=== PATIENT | female | born 1955 | race Caucasian/White ===

== ENCOUNTER 2021-12-17 21:39 | Emergency (ER) | payer OTHER, BC ==
[2021-12-17 21:45] VITALS: BMI 23.9
[2021-12-17 22:24] VITALS: BP 170/82; PULSE 70; RESP 15; TEMP 98.2
[2021-12-17 22:59] LABS: BASO % 0.9 % (0-2.0); EOS % 2.9 % (0-4.5); HEMATOCRIT 40.1 % (32.4-45.2); HEMOGLOBIN 13.5 GM/dL (10.7-15.3); LYMPH % 44.2 % (8-40); MCH 28.8 pg (25.7-33.7); MCHC 33.7 g/dl (32.0-36.0); MEAN CELL VOLUME 85.5 fl (80-96); MEAN PLT VOLUME 9.9 fl (7.5-11.1); MONO % 7.5 % (3.8-10.2); NEUT % 44.5 % (42.8-82.8); PLATELET COUNT 148 10^3/uL (134-434); RBC 4.69 M/mm3 (3.60-5.2); RDW 12.9 % (11.6-15.6); WHITE BLOOD COUNT 5.1 K/mm3 (4.0-10.0)
[2021-12-17 23:18] LABS: CHLORIDE 106 mmol/L (98-107); SODIUM 140 mmol/L (136-145)
[2021-12-17 23:20] LABS: ALBUMIN 4.6 g/dl (3.4-5.0); ANION GAP 7 MMOL/L (8-16); BLOOD UREA NITROGEN 13.4 mg/dL (7-18); CALCIUM 8.8 mg/dL (8.5-10.1); CO2 28 mmol/L (21-32); GLUCOSE,RANDOM 123 mg/dL (74-106)
[2021-12-17 23:23] LABS: SGPT/ALT 39 U/L (13-61)
[2021-12-17 23:24] LABS: BILIRUBIN,TOTAL 0.6 mg/dL (0.2-1); CREATININE 0.9 mg/dL (0.55-1.3); SGOT/AST 23 U/L (15-37)
[2021-12-17 23:26] LABS: ALK PHOS 98 U/L (45-117)
[2021-12-17 23:27] LABS: N-TERMINAL BNP 271.3 pg/ml (5-125)
[2021-12-17 23:45] LABS: INR 1.09 (0.83-1.09); PROTHROMBIN TIME (PATIENT) 12.6 SEC (9.7-13.0)
[2021-12-17 23:47] LABS: ACTIVATED PTT 30.4 SECONDS (25.2-36.5)
== END 2021-12-18 00:10 | disposition home or self-care (01) ==
LOC: JER 21:39
DX: R07.9 Chest pain, unspecified (principal)
CPT/HCPCS: 36415; 71046-TC-FY; 80053; 83880; 84484; 85025; 85379; 85610; 85730; 86850; 86900; 86901; 93005; 93010; 99284-25; C9803-CS; U0003; U0005

== ENCOUNTER 2022-08-08 08:44 | Day surgery (SDC) | payer OTHER, BC ==
[2022-08-05 15:58] VITALS: BMI 22.9
[2022-08-08 13:46] VITALS: RESP 20; TEMP 97.2
[2022-08-08 14:17] VITALS: BP 110/67; PULSE 90
== END 2022-08-08 14:05 | disposition home or self-care (01) ==
LOC: FASU-ENDO 08:44
PROVIDERS: ATTEND Internal Medicine Gastroenterology
PROC: 0DBN8ZX Excision of Sigmoid Colon, Via Natural or Artificial Opening Endoscopic, Diagnostic (ICD-10-PCS; principal; 2022-08-08 13:13)
DX: Z12.11 Encounter for screening for malignant neoplasm of colon (principal); D12.5 Benign neoplasm of sigmoid colon
CPT/HCPCS: 88305-TC

== ENCOUNTER 2023-11-27 12:58 | Emergency (ER) | payer OTHER, BC ==
[2023-11-27 13:14] VITALS: BP 166/97; PULSE 76; RESP 17; TEMP 97.5; BMI 24.4
[2023-11-27 14:15] LABS: BASO % 1.2 % (0-2.0); EOS % 2.8 % (0-4.5); HEMATOCRIT 39.4 % (32.4-45.2); HEMOGLOBIN 13.3 GM/dL (10.7-15.3); LYMPH % 33.9 % (8-40); MCH 28.2 pg (25.7-33.7); MCHC 33.8 g/dl (32.0-36.0); MEAN CELL VOLUME 83.2 fl (80-96); MEAN PLT VOLUME 9.6 fl (7.5-11.1); MONO % 7.6 % (3.8-10.2); NEUT % 54.5 % (42.8-82.8); PLATELET COUNT 176 10^3/uL (134-434); RBC 4.73 M/mm3 (3.60-5.2); RDW 13.5 % (11.6-15.6); WHITE BLOOD COUNT 5.1 K/mm3 (4.0-10.0)
[2023-11-27 14:33] LABS: POTASSIUM 4.5 mmol/L (3.5-5.1)
[2023-11-27 14:35] LABS: CALCIUM 9.5 mg/dL (8.5-10.1)
[2023-11-27 14:36] LABS: BLOOD UREA NITROGEN 13.6 mg/dL (7-18)
[2023-11-27 14:39] LABS: CREATININE 0.7 mg/dL (0.55-1.3)
[2023-11-27 14:40] LABS: BILIRUBIN,TOTAL 0.6 mg/dL (0.2-1)
[2023-11-27 14:41] LABS: TOT PROT 7.1 g/dl (6.4-8.2)
== END 2023-11-27 18:03 | disposition home or self-care (01) ==
LOC: JER 12:58
DX: R10.11 Right upper quadrant pain (principal); R11.0 Nausea
CPT/HCPCS: 36415; 76705-TC; 80053; 83690; 85025; 99284-25